=== PATIENT | male | born 1955 ===

== ENCOUNTER 2017-10-24 08:48 | Day surgery (SDC) | payer MEDICAID ==
[~2017-10-24] VITALS: Ht 182.9 cm; Wt 108.9 kg
[2017-10-24] MEDS ORDERED: LIDOCAINE 2% 100 MG/5 ML UJET TP ONE (10:36)
== END 2017-10-24 11:20 | disposition home or self-care (01) ==
LOC: MDS 08:48 → MMU 08:49 → MDS 11:20
PROVIDERS: ATTEND Internal Medicine Gastroenterology
DX: D12.4 Benign neoplasm of descending colon (principal); K57.30 Diverticulosis of large intestine without perforation or abscess without bleeding; K64.8 Other hemorrhoids; K62.9 Disease of anus and rectum, unspecified; E66.9 Obesity, unspecified; Z90.49 Acquired absence of other specified parts of digestive tract; Z98.890 Other specified postprocedural states; Z88.0 Allergy status to penicillin; Z87.891 Personal history of nicotine dependence; Z68.32 Body mass index [BMI] 32.0-32.9, adult